=== PATIENT | male | born 1960 | race Caucasian/White ===

== ENCOUNTER 2017-01-08 05:43 | Inpatient (IN) | payer MEDICAID ==
[2017-01-08] VITALS (27 sets, daily range): BP systolic 119–181; BP diastolic 93–139; PULSE 66–90; RESP 10–25; TEMP 98; Ht 205.7 cm; Wt 94.5 kg
[~2017-01-08] VITALS: Ht 205.7 cm; Wt 94.5 kg
[2017-01-08] MEDS ORDERED: ASPIRIN 81 MG TAB PO STA (06:02)
[2017-01-08] MEDS ORDERED: ASPIRIN 81 MG TAB ONE (06:03)
[2017-01-08] MEDS ORDERED: HEPARIN 1000 UNITS/ML 10 ML INJ IV STA (06:05)
[2017-01-08 06:15] LABS: ADD SCAN DIFF NO
[2017-01-08] MEDS ORDERED: NITROGLYCERIN (SL) 0.4 MG TAB ONE (06:15)
[2017-01-08 06:19] LABS: BASOPHILS % 0.3 % (0.0-2.0); EOSINOPHILS # 0.1 10^3/ul (0.0-0.5); EOSINOPHILS % 1.1 % (0.0-7.0); HEMATOCRIT 47.8 % (42.0-52.0); HEMOGLOBIN 14.9 g/dl (14.0-18.0); LYMPHOCYTES # 3.4 10^3/ul (0.8-2.9); LYMPHOCYTES % 27.4 % (15.0-51.0); MEAN CORPUSCULAR HEMOGLOBIN 20.2 pg (29.0-33.0); MEAN CORPUSCULAR HGB CONC 31.2 g/dl (32.0-37.0); MEAN CORPUSCULAR VOLUME 64.9 fl (82.0-101.0); MEAN PLATELET VOLUME 9.3 fl (7.4-10.4); MONOCYTE # 0.8 10^3/ul (0.3-0.9); MONOCYTES % 6.8 % (0.0-11.0); NEUTROPHIL # 7.9 10^3/ul (1.6-7.5); NEUTROPHILS % 63.4 % (39.0-77.0); PLATELET COUNT 281 10^3/UL (140-415); RED BLOOD COUNT 7.37 10^6/ul (4.70-6.10); RED CELL DISTRIBUTION WIDTH 18.7 % (11.5-14.5); WHITE BLOOD COUNT 12.4 10^3/ul (4.8-10.8)
[2017-01-08] MEDS ORDERED: NITROGLYCERIN (SL) 0.4 MG TAB SL PRN ×2 (06:30→07:30)
[2017-01-08 06:33] LABS: INR 0.9; PROTIME 12.1 Sec (12.2-14.2); PT RATIO 0.9
[2017-01-08 06:34] LABS: PARTIAL THROMBOPLASTIN TIME 25.5 Sec (25.0-35.0)
[2017-01-08] MEDS ORDERED: LIDOCAINE 1% (MDV) 20 ML INJ ONE (06:38)
[2017-01-08] MEDS ORDERED: MIDAZOLAM 1 MG/ML 2 ML INJ ONE (06:38)
[2017-01-08] MEDS ORDERED: FENTAnyl 50 MCG/ML VIAL ONE (06:38)
--- NOTE | 2017-01-08 06:41 | RADRPT ---
PROCEDURE: XR Chest. CLINICAL INDICATION: Chest Pain. TECHNIQUE: Portable single view of the chest COMPARISON: None. FINDINGS: External pacer is overlie the chest. Heart size is top normal. No acute infiltrate, pleural effusi on, or overt congestive heart failure. No bony abnormality is seen. IMPRESSION: No definite acute pulmonary disease. RPTAT: HLBE Johana Oscar Physician Date Time Electronically viewed and signed by Johana Oscar, Physician on 01/08/2017 06:41 CATRACHITO/
[2017-01-08] MEDS ORDERED: NITROGLYCERIN (IC) 100 MCG/ML INJ ONE (06:47)
[2017-01-08] MEDS ORDERED: VERAPAMIL 5 MG INJ ONE (06:47)
--- NOTE | 2017-01-08 06:59 | CONS ---
DATE OF ADMISSION: 01/08/2017 DATE OF CONSULTATION: 01/08/2017 TYPE OF CONSULTATION: Emergency interventional cardiology. REASON FOR CONSULTATION: ST elevation myocardial infarction. CHIEF COMPLAINT: Chest pain. HISTORY OF PRESENT ILLNESS: Thank you for this referral. History obtained from the patient, bertin gandhi with the emergency room staff. This is a 56-year-old gentleman with history of hypertension, d yslipidemia, noncompliant, no medication, who presented with anterior chest pain. The patient said it happened last night around 10:00. He had chest pain that went away. He woke up again at 3 o'zeke ck in the morning with severe anterior chest pain and pressure. He walked into the emergency room w ith chest pain and EKG that showed ST elevation inferiorly. Code STEMI was called. The patient was evaluated in the emergency room by myself. He still complains of chest pain. He is still hyperten sive. Heparin and nitroglycerin was given already. He is still complaining of chest pain. PAST MEDICAL HISTORY: 1. Hypertension. 2. Dyslipidemia. MEDICATIONS AT HOME: Apparently he does not take any medications. SOCIAL HISTORY: The patient does smoke. FAMILY HISTORY: Father with coronary artery disease and ND. ALLERGIES: NO REPORTED ALLERGIES. REVIEW OF SYSTEMS: He denies all other except for above-mentioned. Apparently he is not very compl iant with his medications or his followup. The last time he saw a doctor apparently has been more t valadez a year ago. PHYSICAL EXAMINATION: VITAL SIGNS: Temperature 96.8, heart rate of 74, blood pressure initially was 210/131 and subsequen tly was 199/120. Respiratory rate of 20, saturating 100%. HEENT: Normocephalic, atraumatic. Obese gentleman. Appears in mild distress. Eyes: Pupils equal and round. CARDIOVASCULAR: Regular rate and rhythm with systolic murmur. PULMONARY: No wheezes heard anteriorly. No rhonchi. GASTROINTESTINAL: Obese, soft, nontender. EXTREMITIES: With no significant lower extremity edema. Pulses bilateral radial intact and symmetr ical. NEUROLOGIC: Awake and alert x3. PSYCHIATRIC: Calm, pleasant. LABORATORY: WBC 12.4, hemoglobin 14.9, platelets 281. INR is 0.9. The rest of the labs are pendin g. EKG showed normal sinus rhythm with ST elevation inferiorly with reciprocal changes noted in the aVL consistent with inferior ST elevation myocardial infarction. ASSESSMENT AND PLAN: 1. Acute inferior ST elevation myocardial infarction. 2. Hypertensive urgency. 3. Dyslipidemia. 4. Smoking. 5. History of poor compliance with the medications. 6. Abnormal EKG secondary to above. RECOMMENDATIONS: The patient has been given aspirin. We will give more nitroglycerine. He was rec ommended to undergo emergent left heart catheterization, selective right and left coronary angiograp hy, possible percutaneous coronary intervention. Risks, benefits, and alternatives discussed with t he patient. The risks include infection, vascular complication, bleeding complication, ND, stroke, arrhythmia, , renal failure, etc., discussed with the patient. The patient consented to proced ure. Importance of compliance with the medication was emphasized to the patient who said that he wi ll be compliant. We will take the patient to the phlebotomy lab assistant as soon as the phlebotomy lab assistant team is ready. Dictated By: FARHAT TITUS MD AV/GISSELLE Conf#: [id number] DID#: [id number] CC: SHADE CASEY MD;*EndCC*
[2017-01-08 07:02] LABS: ALBUMIN 4.3 g/dl (3.3-4.9); ALBUMIN/GLOBULIN RATIO 1.16; BILIRUBIN,INDIRECT 0.6 mg/dl (0-1.1); BILIRUBIN,TOTAL 0.6 mg/dl (0.2-1.3); CREATININE 1.02 mg/dl (0.61-1.24)
[2017-01-08] MEDS ORDERED: TICAGRELOR 90 MG TABLET ONE (07:03)
[2017-01-08 07:13] LABS: TROPONIN-I 0.086 ng/ml (0.00-0.12)
[2017-01-08 07:19] LABS: CALCIUM 8.8 mg/dl (8.4-10.2); POTASSIUM 3.6 mmol/L (3.5-5.1)
[2017-01-08] MEDS ORDERED: IODIXANOL LOCM 50 ML BTL ONE (07:21)
[2017-01-08] MEDS ORDERED: BIVALIRUDIN 250MG /NS 50 ML 50 ML IVPB ONE (07:21)
[2017-01-08] MEDS ORDERED: SOD CHLORIDE 0.9% 1,000 ML IV SCH (07:25)
[2017-01-08] MEDS ORDERED: OXYCODONE/ACETAMINOPHEN (5/325) TAB PO PRN (07:30)
[2017-01-08] MEDS ORDERED: morphine 2 MG INJ IV PRN (07:30)
--- NOTE | 2017-01-08 08:20 | SP ---
DATE OF PROCEDURE: 01/08/2017 PROCEDURE PERFORMED: 1. Emergent left heart catheterization, selective right and left coronary angiography. 2. Right femoral angiogram and closure of right femoral artery using Angio-Seal device. 3. Successful angioplasty of distal right coronary artery from 100% occlusion to no significant res idual stenosis using a 2 x 12 balloon. 4. Thrombectomy of the left anterior descending artery. 5. Conscious sedation/moderate sedation for more than 60 minutes. CLINICAL INDICATIONS: This is a 56-year-old gentleman who presented with ST-elevation myocardial in farction. FINDINGS: 1. Left main coronary artery is short and normal. 2. Left anterior descending, a long vessel wraps around the apex. Proximally about 20% stenosis. Mid level about 50% stenosis. At the distal level has 100% occluded with evidence of intraluminal t hrombus. After successful angioplasty, thrombectomy of this lesion, there was no significant residu al stenosis of the left. 3. Ramus intermedius is a small vessel, about 1 to 1.5 mm vessel, with about 60% to 70% stenosis. 4. Left circumflex artery gives off to a very large obtuse marginal 1, has about 30% stenosis. 5. Right coronary is a large, dominant vessel and appeared to be normal. 6. Left ventriculogram showed apical wall hypokinesis, ejection fraction estimated about 50%. LVED P is 18 with no significant gradient across the aortic valve. DESCRIPTION OF PROCEDURE: Written and informed consent was discussed with the patient. The patient was brought emergently to the laborer electroplating and placed in supine position. Right and left groins were p repped and draped in sterile fashion. Right groin area was anesthetized with 1% lidocaine. Using m ultiple technique, a 6-Turkish sheath was placed in the femoral artery. A JL4 catheter was advanced and engaged in the left main coronary artery. Angiogram was obtained. A JR4 catheter was in the formerly [facility] coronary artery and angiogram was obtained. At this time, decided to perform the PCI of the LAD which appeared to be an acute lesion. JL4 guiding catheter was advanced in the left main coronary artery. BMW wire used across the lesion, a 2 x 12 balloon was advanced across the lesion, distal LA D, and inflated multiple times. Then, it was removed and thrombectomy was done using a Pronto devic e. Angiogram was obtained after intracoronary nitroglycerin and verapamil were given. Then, I used the same balloon again multiple times and a prolonged inflation of the balloon was done. I decided not to stent this area because of: 1. Being a very distal LAD lesion. 2. The patient's very poor compliance and not commitment to be compliant with medication. I was co ncerned about subacute thrombosis of the stent if ____ placing the stent. Final angiogram was obtai patrick which showed OLENA 3 flow, no evidence of dissection, no significant residual stenosis. Catheter and Glidewire were removed. Pigtail was advanced in the left main, hemodynamics recorded. LV gram performed. Pullback aortic pressure was measured. Right femoral angiogram was performed. Angio-S eal was successfully deployed. The patient tolerated the procedure, no complication. The patient i s to be transferred to ICU in stable condition. TOTAL CONTRAST USED: 120 mL of Visipaque. IMMEDIATE COMPLICATIONS: None. CONCLUSION: Successful angioplasty and thrombectomy of the distal LAD from 100% occlusion to no sig nificant residual stenosis. RECOMMENDATIONS: Aggressive medical therapy. Dictated By: FARHAT TITUS MD AV/GISSELLE Conf#: [id number] DID#: [id number] CC: JUDI MONGE MD;*EndCC*
--- NOTE | 2017-01-08 08:52 | ERA ---
ER Documentation Chief Complaint Date/Time DATE: 01/08/17 TIME: 08:49 Chief Complaint LT SIDE CP NON RADIATING X1 HR. +SOB. HIGH BP HPI Patient is a 56-year-old male with hypertension who presents with chest pain. The patient had midsternal chest pain which started at 1030 last night. He said that the pain is still there. He has had no treatment as of yet. The pain comes and goes. Upon review of old medical records this is the patient's first visit to the emergency department. He does not currently have a primary doctor. ROS All systems reviewed and are negative except as per history of present illness. Allergies Allergies: Coded Allergies: No Known Allergy (Unverified , 01/08/17) NKA PER DULCE [employer]IA [employer] IN [employer] PMhx/Soc Medical and Surgical Hx: pt denies Surgical Hx History of Surgery: No Anesthesia Reaction: No Hx Neurological Disorder: No Hx Respiratory Disorders: No Hx Cardiac Disorders: Yes (htn) Hx Psychiatric Problems: No Hx Miscellaneous Medical Probl: No Hx Alcohol Use: No Hx Substance Use: No Hx Tobacco Use: No Smoking Status: Never smoker FmHx Family History: coronary disease Physical Exam Vitals Vital Signs Date Time Temp Pulse Resp B/P Pulse Ox O2 Delivery O2 Flow Rate FiO2 01/08/17 06:14 94 20 199/122 100 Nasal Cannula 2.0 01/08/17 06:10 100 3.0 01/08/17 05:56 Nasal Cannula 2 01/08/17 05:46 96.8 74 22 210/131 100 Physical Exam Const: No acute distress Head: Atraumatic Eyes: Normal Conjunctiva ENT: Normal External Ears, Nose and Mouth. Neck: Full range of motion..~ No meningismus. Resp: Clear to auscultation bilaterally Cardio: Regular rate and rhythm, no murmurs Abd: Soft, non tender, non distended. Normal bowel sounds Skin: No petechiae or rashes Back: No midline or flank tenderness Ext: No cyanosis, or edema Neur: Awake and alert Psych: Normal Mood and Affect Result Diagram: 01/08/17 0559 01/08/17 0559 Results 24 hrs Laboratory Tests Test 01/08/17 05:59 White Blood Count 12.410^3/ul Red Blood Count 7.3710^6/ul Hemoglobin 14.9g/dl Hematocrit 47.8% Mean Corpuscular Volume 64.9fl Mean Corpuscular Hemoglobin 20.2pg Mean Corpuscular Hemoglobin Concent 31.2g/dl Red Cell Distribution Width 18.7% Platelet Count 60564^3/UL Mean Platelet Volume 9.3fl Neutrophils % 63.4% Lymphocytes % 27.4% Monocytes % 6.8% Eosinophils % 1.1% Basophils % 0.3% Nucleated Red Blood Cells % 0.0/100WBC Neutrophils # 7.910^3/ul Lymphocytes # 3.410^3/ul Monocytes # 0.810^3/ul Eosinophils # 0.110^3/ul Basophils # 0.010^3/ul Nucleated Red Blood Cells # 0.010^3/ul Prothrombin Time 12.1Sec Prothrombin Time Ratio 0.9 INR International Normalized Ratio 0.90 Activated Partial Thromboplast Time 25.5Sec Sodium Level 137mmol/L Potassium Level 3.6mmol/L Chloride Level 103mmol/L Carbon Dioxide Level 26mmol/L Anion Gap 12 Blood Urea Nitrogen 17mg/dl Creatinine 1.02mg/dl Glucose Level 131mg/dl Calcium Level 8.8mg/dl Total Bilirubin 0.6mg/dl Direct Bilirubin 0.00mg/dl Indirect Bilirubin 0.6mg/dl Aspartate Amino Transf (AST/SGOT) 18IU/L Alanine Aminotransferase (ALT/SGPT) 31IU/L Alkaline Phosphatase 74IU/L Troponin I 0.086ng/ml B-Type Natriuretic Peptide 35PG/ML Total Protein 8.0g/dl Albumin 4.3g/dl Globulin 3.70g/dl Albumin/Globulin Ratio 1.16 Current Medications Medications (Trade) Dose Ordered Sig/Ross Route PRN Reason Start Time Stop Time Status Last Admin Dose Admin Aspirin (Aspirin) 162 mg ONCE STAT PO 01/08/17 06:02 01/08/17 06:03 DC 01/08/17 06:11 Heparin Sodium (Porcine) (Heparin (1000 Units/ml)) 5,000 unit ONCE STAT IV 01/08/17 06:05 01/08/17 06:07 DC 01/08/17 06:12 Nitroglycerin (Nitroglycerin (Sl Tab) 0.4 Mg) 1 tab Q5M UP TO 3 DOSES PRN SL CHEST PAIN 01/08/17 06:30 01/08/17 07:34 DC 01/08/17 06:44 Nitroglycerin (Nitroglycerin (Sl Tab) 0.4 Mg) 25 tab STK-MED ONCE .ROUTE 01/08/17 06:15 01/08/17 06:16 DC Lidocaine 20 ml 20 ml STK-MED ONCE .ROUTE 01/08/17 06:38 01/08/17 06:39 DC Heparin Sodium/ Sodium Chloride (Heparin 1000 Units/NS (A-Line)) 1,500 ml @ ud STK-MED ONCE .ROUTE 01/08/17 06:38 01/08/17 06:39 DC Fentanyl (Sublimaze) 100 mcg STK-MED ONCE .ROUTE 01/08/17 06:38 01/08/17 06:39 DC Midazolam HCl (Versed) 2 mg STK-MED ONCE .ROUTE 01/08/17 06:38 01/08/17 06:39 DC Procedures/MDM EKG #1 read by me: Rate/Rhythm: Regular rate and rhythm at a normal rate Intervals: Normal Impression: ST elevations in the inferior leads with reciprocal depression in aVL consistent with STEMI EKG #2 read by me: Rate/Rhythm: Regular rate and rhythm at a normal rate Intervals: Normal Impression: Worsening ST elevations in the inferior leads consistent with STEMI Chest x-ray negative per radiology. Patient is a 56-year-old male who presents with chest pain. He walked in with chest pain. His initial EKG was concerning for STEMI and a code STEMI was called overhead. I did not see the initial EKG as the patient arrived prior to the start of my shift. Cardiology was called at 0604. I spoke with Dr. Cho at 0606. He agreed to go to the cardiac Youth Program Director. We awaited the arrival of the cardiac cath team and at 0 [phone] the patient was transferred to the cardiac Youth Program Director. The patient was given aspirin, nitroglycerin, and heparin. The patient will be admitted to the care of the panel team to the ICU after the cardiac cath is completed. I doubt pneumonia, pneumothorax, pulmonary embolism , or aortic dissection. Critical Care: Time: 35 minutes excluding all billable procedures. Treatments/Evaluations: Close monitoring and treatment of unstable vital signs, cardiorespiratory, and neurologic status, while maintaining tight balance of fluid, respiratory, and cardiac interventions. Departure Diagnosis: Primary Impression: STEMI (ST elevation myocardial infarction) Qualified Code: I21.3 - ST elevation myocardial infarction (STEMI), unspecified artery Additional Impressions: Chest pain Qualified Code: I20.9 - Chest pain due to myocardial ischemia, unspecified ischemic chest pain type Hypertension Qualified Code: I10 - Essential hypertension Condition: Critical SHADE CASEY MD January 08, 2017 08:52
[2017-01-08] MEDS: FAMOTIDINE 20 MG TAB PO SCH ×2 (11:04→21:36)
[2017-01-08] MEDS: DOCUSATE SODIUM 100 MG CAP PO SCH ×2 (11:04→21:36)
[2017-01-08] MEDS: ASPIRIN (EC) 81 MG TAB PO SCH (11:04)
[2017-01-08] MEDS: TICAGRELOR 90 MG TABLET PO SCH ×2 (11:05→21:38)
[2017-01-08 13:06] LABS: ALBUMIN 3.7 g/dl (3.3-4.9); ALBUMIN/GLOBULIN RATIO 1.37; BILIRUBIN,INDIRECT 0.8 mg/dl (0-1.1); BILIRUBIN,TOTAL 0.8 mg/dl (0.2-1.3); CALCIUM 8.4 mg/dl (8.4-10.2); CREATININE 0.74 mg/dl (0.61-1.24); POTASSIUM 3.9 mmol/L (3.5-5.1); TOTAL PROTEIN 6.4 g/dl (6.1-8.1)
--- NOTE | 2017-01-08 13:21 | HP ---
DATE OF ADMISSION: 01/08/2017 CHIEF COMPLAINT: Chest pain. HISTORY OF PRESENT ILLNESS: The patient is a 56-year-old male with no medical history. The patient presents with chest pain that was nonradiating for 1 hour, as well as shortness of breath. Patient does not have a PCP. He does have questionable history of hypertension. In the ED, the patient oro d an EKG that showed ST elevations in the anterior leads with reciprocal depression in aVL consisten t with a STEMI. The patient was taken to the cardiac catheterization lab with Dr. Cho where he h ad a successful angioplasty of the distal right coronary artery from 100% occlusion to no residual s tenosis. The patient also had a thrombectomy of the left anterior descending artery. Patient now d enies any chest pain. He has no complaints. PAST MEDICAL HISTORY: Essentially none except for possible hypertension. PAST SURGICAL HISTORY: Denies. HOME MEDICATIONS: None/ ALLERGIES: NO KNOWN DRUG ALLERGIES. FAMILY HISTORY: Diabetes. SOCIAL HISTORY: Denies any alcohol, tobacco, or drug abuse. REVIEW OF SYSTEMS: A 12-point review of systems negative except that discussed in HPI. PHYSICAL EXAMINATION: VITAL SIGNS: Temperature is 98.1, pulse 69, respiration is 18, BP is 141/100, saturation 100% room air. GENERAL: No acute distress, alert and oriented. HEENT: Normocephalic, atraumatic. LUNGS: Clear to auscultation. CARDIOVASCULAR: Regular rate and rhythm. ABDOMEN: Nondistended, nontender, soft. EXTREMITIES: No clubbing, cyanosis, or edema. LABORATORY TESTS: White count 12.4, hemoglobin 14.9, platelets are 281. Chemistry within normal li mits. INR is 0.90. DIAGNOSTICS: Chest x-ray today showed no acute pulmonary disease. EKG arrival showed ST elevations in the inferior leads. ASSESSMENT AND PLAN: 1. STEMI status post cardiac catheterization with successful angioplasty of the distal RCA, as well as thrombectomy of the left anterior descending artery. The patient is currently chest pain free. We will continue his current cardiac medications of aspirin, Brilinta and statin as well as beta bl ocker. 2. Mild congestive heart failure. The patient's EF is at 60%. There is some apical wall hypokines is that could be myocardium versus new heart failure. The patient will need a followup echo w [facility] cardiology. 3. Prophylaxis: SCDs. Dictated By: CHRISTINE WHITE/GISSELLE Conf#: [id number] DID#: [id number]
[2017-01-08 13:24] LABS: CK-MB 34.6 ng/ml (0.0-2.4)
[2017-01-08 13:28] LABS: TROPONIN-I 14.9 ng/ml (0.00-0.12)
--- NOTE | 2017-01-08 13:44 | RADRPT ---
Echocardiogram Report Patient Name: VELIA BOATENG Gender: Male Date: 1960 Study Date: 08-Jan-2017 Autistic Teacher: Magali Little RDCS Location: 119 Ref. Physician: FARHAT CHO Quality: Good Procedures: Transthoracic echocardiogram with complete 2D, M-Mode, and doppler examination. Indications: STEMI. 2D/M Mode Doppler Measurement Value Normal Ranges Measurement Value Normal Ranges LVIDd 2D 4.9 3.5 - 5.6 cm AV Peak Camilo 1.2 m/sec LVIDs 2D 3.1 2.1 - 4.1 cm AV Peak PG 5.0 mmHg FS 2D 37.4 % LVOT Peak Camilo 0.8 m/sec LVPWd 2D 1.3 0.6 - 1.1 cm LVOT Peak PG 3.0 mmHg IVSd 2D 1.3 0.6 - 1.1 cm MV E Peak Camilo 0.6 m/sec IVS/LVPW 2D 1.0 MV A Peak Camilo 1.0 m/sec AoR Diam 2D 3.4 2.0 - 3.7 cm MV E/A 0.6 LA/Ao 2D 1 0 - 1 MV Decel Time 169 msec EDV 2D 117.0 cm3 MV E/A 0.6 ESV 2D 28.7 cm3 TR Peak Camilo 2.0 m/sec LA Dimen 2D 3.2 2.3 - 4.0 cm TR Peak PG 17.0 mmHg RVSP 25.0 mmHg Findings Left Ventricle: Normal left ventricular cavity size. Mild concentric left ventricular hypertrophy. Mild left ventricular systolic dysfunction. Ejection fraction is visually estimated at 45 - 50 %. Tissue Doppler/Mitral Doppler indices are consistent with impaired relaxation (Stage I diastolic dysfunction). These segments of the LV are hypokinetic apex and inferior apex segment. Right Ventricle: Normal right ventricular size. Normal right ventricular systolic function. Left Atrium: The left atrium is normal in size. Right Atrium: The right atrium is normal in size. Mitral Valve: Mitral valve leaflets appear mildly thickened. Mild mitral annular calcification. Trace mitral regurgitation. Aortic Valve: No significant aortic stenosis or insufficiency. Aortic cusps appear mildly calcified. Tricuspid Valve: Normal appearance of the tricuspid valve. Estimated peak PA systolic pressure 25 mmHg. There is trace tricuspid regurgitation. Pulmonic Valve: Normal pulmonic valve appearance. Pericardium: Normal pericardium with no significant pericardial effusion. Aorta: Normal aortic root. IVC: Normal size and normal respiratory collapse consistent with normal right atrial pressure. Conclusions 1.Normal left ventricular cavity size. Mild concentric left ventricular hypertrophy. Mild left ventricular systolic dysfunction. Ejection fraction is visually estimated at 45 - 50 %. Tissue Doppler/Mitral Doppler indices are consistent with impaired relaxation (Stage I diastolic dysfunction). These segments of the LV are hypokinetic apex and inferior apex segment. 2.Mitral valve leaflets appear mildly thickened. Mild mitral annular calcification. Trace mitral regurgitation. 3.No significant aortic stenosis or insufficiency. Aortic cusps appear mildly calcified. 4.Normal appearance of the tricuspid valve. Estimated peak PA systolic pressure 25 mmHg. There is trace tricuspid regurgitation. Electronically Signed By: Farhat Cho 08-Jan-2017 13:43:54 -0700 Patient Name: VELIA BOATENG Study Date: 08-Jan-2017 [id number]
--- NOTE | 2017-01-08 14:15 | RADRPT ---
Vent Rate: 69 bpm RR Interval: 0 msec ND Interval: 180 msec QRS Duration: 108 msec QT Interval: 428 msec QTC Interval: 458 msec P-R-T [place]: 60 - 55 - -68 degrees Normal sinus rhythm T wave abnormality, consider inferior ischemia T wave abnormality, consider anterolateral ischemia Abnormal ECG Electronically Signed By: Facundo Cho [id number]
[2017-01-08] MEDS ORDERED: PROPOFOL 100 ML IV SCH (20:30)
[2017-01-08] MEDS: AMLODIPINE 5 MG TAB PO SCH (21:36)
[2017-01-08] MEDS: ATORVASTATIN 80 MG TAB PO SCH (21:36)
[2017-01-09] VITALS (12 sets, daily range): BP systolic 120–149; BP diastolic 75–90; PULSE 53–87; RESP 16–20
[2017-01-09] MEDS: ASPIRIN (EC) 81 MG TAB PO SCH (08:43)
[2017-01-09] MEDS: FAMOTIDINE 20 MG TAB PO SCH ×2 (08:43→21:34)
[2017-01-09] MEDS: DOCUSATE SODIUM 100 MG CAP PO SCH ×2 (08:43→21:34)
[2017-01-09] MEDS: TICAGRELOR 90 MG TABLET PO SCH ×2 (08:43→21:37)
[2017-01-09] MEDS: AMLODIPINE 5 MG TAB PO SCH (08:43)
--- NOTE | 2017-01-09 09:28 | PN ---
DATE: 01/09/2017 CARDIOLOGY FOLLOWUP SUBJECTIVE: No more chest pain or pressure. No palpitation. Remains in sinus rhythm now. No groi n pain. He was able to walk last night. No bleeding reported. MEDICATIONS: Reviewed, which include: 1. Lipitor 80. 2. Amlodipine of 5. 3. Aspirin. 4. Brilinta. 5. Coreg 6.25. PHYSICAL EXAMINATION: VITAL SIGNS: Temperature 98.1, heart rate of 69, blood pressure 136/90, respiratory rate of 20, sat urating 97%. HEENT: Normocephalic, atraumatic. Pupils are equal. CARDIOVASCULAR: Regular rate and rhythm. Systolic murmur. PULMONARY: With no wheezes heard. GASTROINTESTINAL: Soft, obese, nontender. EXTREMITIES: With no significant lower extremity edema. NEUROLOGIC: Awake and alert. PSYCHIATRIC: Calm, pleasant. LABORATORY DATA: Most recent labs show sodium 137, potassium 3.9, BUN of 11, creatinine 0.74, gluco se of 96. Troponin yesterday was 14.9 with MB CK of 520 34. This morning labs are still pend ing. ASSESSMENT AND PLAN: 1. Acute ST elevation myocardial infarction, status post percutaneous transluminal coronary angiopl asty of the left anterior descending. 2. Hypertension. 3. Dyslipidemia. 4. Obesity. RECOMMENDATIONS: I will increase the Coreg to 12.5 b.i.d. Continue the rest of his cardiac care. Follow up the labs today and repeat again tomorrow. Discharge planning for tomorrow, possibly. Dictated By: FARHAT TITUS MD AV/GISSELLE Conf#: [id number] DID#: [id number] CC: CHRISTINE SAEED MD;*EndCC*
[2017-01-09 10:26] LABS: ADD SCAN DIFF NO
[2017-01-09 10:32] LABS: BASOPHILS % 0.2 % (0.0-2.0); EOSINOPHILS # 0.2 10^3/ul (0.0-0.5); EOSINOPHILS % 1.6 % (0.0-7.0); HEMATOCRIT 45.1 % (42.0-52.0); LYMPHOCYTES # 2.2 10^3/ul (0.8-2.9); LYMPHOCYTES % 18.1 % (15.0-51.0); MEAN CORPUSCULAR HEMOGLOBIN 19.9 pg (29.0-33.0); MEAN PLATELET VOLUME 9.7 fl (7.4-10.4); MONOCYTE # 0.9 10^3/ul (0.3-0.9); MONOCYTES % 7.6 % (0.0-11.0); NEUTROPHIL # 8.5 10^3/ul (1.6-7.5); NEUTROPHILS % 71.7 % (39.0-77.0); PLATELET COUNT 267 10^3/UL (140-415); RED BLOOD COUNT 7.05 10^6/ul (4.70-6.10); RED CELL DISTRIBUTION WIDTH 19.4 % (11.5-14.5); WHITE BLOOD COUNT 11.9 10^3/ul (4.8-10.8)
[2017-01-09 10:53] LABS: ALBUMIN 3.8 g/dl (3.3-4.9); ALBUMIN/GLOBULIN RATIO 1.26; CALCIUM 8.8 mg/dl (8.4-10.2); CHOL/HDL RATIO 5.9 RATIO; CREATININE 0.85 mg/dl (0.61-1.24); MAGNESIUM 1.8 mg/dl (1.7-2.5); TOTAL PROTEIN 6.8 g/dl (6.1-8.1)
[2017-01-09 11:08] LABS: TROPONIN-I 4.97 ng/ml (0.00-0.12)
[2017-01-09 11:09] LABS: CK-MB 6.74 ng/ml (0.0-2.4)
[2017-01-09 11:25] LABS: THYROID STIMULATING HORMONE 2.77 MIU/L (0.465-4.680)
[2017-01-09] MEDS: ACETAMINOPHEN 325 MG TAB PO PRN ×2 (14:23→21:39)
--- NOTE | 2017-01-09 15:59 | PN ---
Date/Time of Note Date/Time of Note DATE: 01/09/17 TIME: 15:56 Assessment/Plan VTE Prophylaxis VTE Prophylaxis Intervention: SCD's Lines/Catheters IV C[facility]ter Type (from [facility]): Peripheral IV Urinary Cath still in place: No Assessment/Plan Chief Complaint/Hosp Course 1. STEMI status post cardiac catheterization with successful angioplasty of the distal RCA, as well as thrombectomy of the left anterior descending artery -Continue aspirin, Brilinta and statin as well as beta melissa, beta melissa dose increased today by cardiology 2. Mild congestive heart failure versus stunned myocardium -EF is 45%-50% -Continue cardiac meds 3. Hypertension-BP elevated -Coreg dose was increased Prophylaxis: SCDs. Discharge planning: Likely DC in a.m. Problems: Subjective 24 Hr Interval Summary Constitutional: no complaints Exam/Review of Systems Vital Signs Vitals Vital Signs Date Time Temp Pulse Resp B/P Pulse Ox O2 Delivery O2 Flow Rate FiO2 01/09/17 15:13 98.9 54 20 144/82 96 01/08/17 22:00 Room Air 01/08/17 06:40 2.0 Intake and Output 01/08/17 01/08/17 01/09/17 15:00 23:00 07:00 Intake Total 150 ml 750 ml 100 ml Output Total 1950 ml 1000 ml 700 ml Balance -1800 ml -250 ml -600 ml Exam Constitutional: alert, oriented Respiratory: clear to auscultation Cardiovascular: regular rate and rhythm Gastrointestinal: soft, No distended Musculoskeletal: nl extremities to inspection Results Result Diagram: 01/09/17 1015 01/09/17 1015 Results 24 hrs Laboratory Tests Test 01/09/17 10:15 White Blood Count 11.9 H Red Blood Count 7.05 H Hemoglobin 14.0 Hematocrit 45.1 Mean Corpuscular Volume 64.0 L Mean Corpuscular Hemoglobin 19.9 L Mean Corpuscular Hemoglobin Concent 31.0 L Red Cell Distribution Width 19.4 H Platelet Count 267 Mean Platelet Volume 9.7 Neutrophils % 71.7 Lymphocytes % 18.1 Monocytes % 7.6 Eosinophils % 1.6 Basophils % 0.2 Nucleated Red Blood Cells % 0.0 Neutrophils # 8.5 H Lymphocytes # 2.2 Monocytes # 0.9 Eosinophils # 0.2 Basophils # 0.0 Nucleated Red Blood Cells # 0.0 Sodium Level 135 Potassium Level 4.0 Chloride Level 105 Carbon Dioxide Level 24 Anion Gap 10 Blood Urea Nitrogen 14 Creatinine 0.85 Glucose Level 98 Calcium Level 8.8 Magnesium Level 1.8 Total Bilirubin 1.0 Direct Bilirubin 0.00 Indirect Bilirubin 1.0 Aspartate Amino Transf (AST/SGOT) 38 Alanine Aminotransferase (ALT/SGPT) 34 Alkaline Phosphatase 48 Creatine Kinase 133 # Creatine Kinase Index 5.1 Creatinine Kinase MB (Mass) 6.74 H Troponin I 4.970 *H B-Type Natriuretic Peptide 398 H Total Protein 6.8 Albumin 3.8 Globulin 3.00 Albumin/Globulin Ratio 1.26 Triglycerides Level 320 H Cholesterol Level 178 LDL Cholesterol, Calculated 84 HDL Cholesterol 30 Cholesterol/HDL Ratio 5.9 Thyroid Stimulating Hormone (TSH) 2.770 Free Thyroxine 0.78 Medications Medications Current Medications Aspirin (Halfprin) 81 mg DAILY PO Last administered on 01/09/17 08:43; Admin Dose 81 MG; Start 01/08/17 at 09:00 Ticagrelor (Brilinta) 90 mg BID PO Last administered on 01/09/17 08:43; Admin Dose 90 MG; Start 01/08/17 at 09:00 Nitroglycerin (Nitroglycerin (Sl Tab) 0.4 Mg) 1 tab Q5M PRN SL CHEST PAIN; Start 01/08/17 at 07:30 Acetaminophen (Tylenol Tab) 650 mg Q4H PRN PO NON-CARDIAC PAIN LEVEL 1-3 Last administered on 01/09/17 14:23; Admin Dose 650 MG; Start 01/08/17 at 07:30 Oxycodone/ Acetaminophen (Percocet (5/ 325)) 1 tab Q4H PRN PO REPORTED NON- CARDIAC PAIN 4-7; Start 01/08/17 at 07:30 Morphine Sulfate (morphine) 1 mg Q1H PRN IV PAIN NOT RELIEVED BY OTHERS; Start 01/08/17 at 07:30 Docusate Sodium (Colace) 100 mg BID PO Last administered on 01/09/17 08:43; Admin Dose 100 MG; Start 01/08/17 at 09:00 Famotidine (Pepcid) 20 mg Q12 PO Last administered on 01/09/17 08:43; Admin Dose 20 MG; Start 01/08/17 at 09:00 Atorvastatin Calcium (Lipitor) 80 mg DAILY@21 PO Last administered on 01/08/17 21:36; Admin Dose 80 MG; Start 01/08/17 at 21:00 Amlodipine Besylate (Norvasc) 5 mg DAILY PO Last administered on 01/09/17 08: 43; Admin Dose 5 MG; Start 01/08/17 at 21:00 Carvedilol (Coreg) 12.5 mg BID PO Last administered on 01/09/17 08:43; Admin Dose 12.5 MG; Start 01/09/17 at 09:00 CHRISTINE SAEED January 09, 2017 15:59
[2017-01-09] MEDS: ATORVASTATIN 80 MG TAB PO SCH (21:34)
[2017-01-10] VITALS (8 sets, daily range): BP systolic 132–147; BP diastolic 77–90; PULSE 59–69; RESP 16–20
[2017-01-10 08:20] LABS: ADD SCAN DIFF NO
[2017-01-10 08:27] LABS: BASOPHILS % 0.3 % (0.0-2.0); EOSINOPHILS # 0.2 10^3/ul (0.0-0.5); EOSINOPHILS % 1.6 % (0.0-7.0); HEMATOCRIT 45.5 % (42.0-52.0); LYMPHOCYTES # 2.6 10^3/ul (0.8-2.9); LYMPHOCYTES % 21.8 % (15.0-51.0); MEAN CORPUSCULAR HEMOGLOBIN 19.7 pg (29.0-33.0); MEAN CORPUSCULAR HGB CONC 30.8 g/dl (32.0-37.0); MEAN CORPUSCULAR VOLUME 64.1 fl (82.0-101.0); MEAN PLATELET VOLUME 10.4 fl (7.4-10.4); MONOCYTE # 0.9 10^3/ul (0.3-0.9); MONOCYTES % 7.2 % (0.0-11.0); NEUTROPHIL # 8.3 10^3/ul (1.6-7.5); PLATELET COUNT 282 10^3/UL (140-415); RED CELL DISTRIBUTION WIDTH 19.3 % (11.5-14.5); WHITE BLOOD COUNT 12.1 10^3/ul (4.8-10.8)
[2017-01-10] MEDS: DOCUSATE SODIUM 100 MG CAP PO SCH (08:32)
[2017-01-10] MEDS: ASPIRIN (EC) 81 MG TAB PO SCH (08:32)
[2017-01-10] MEDS: AMLODIPINE 5 MG TAB PO SCH (08:33)
[2017-01-10] MEDS: FAMOTIDINE 20 MG TAB PO SCH (08:33)
[2017-01-10] MEDS: TICAGRELOR 90 MG TABLET PO SCH (08:34)
[2017-01-10 08:58] LABS: ALBUMIN 3.8 g/dl (3.3-4.9); ALBUMIN/GLOBULIN RATIO 1.15; CALCIUM 9.2 mg/dl (8.4-10.2); CREATININE 0.95 mg/dl (0.61-1.24); MAGNESIUM 1.9 mg/dl (1.7-2.5); POTASSIUM 3.9 mmol/L (3.5-5.1); TOTAL PROTEIN 7.1 g/dl (6.1-8.1)
[2017-01-10] MEDS ORDERED: PANTOPRAZOLE (EC) 40 MG TAB PO SCH (09:00)
--- NOTE | 2017-01-10 09:02 | PN ---
DATE: 01/10/2017 CARDIOLOGY FOLLOWUP SUBJECTIVE: Discussed with the staff. Rhythm strip was reviewed. The patient was in sinus rhythm. No chest pain or pressure now. H said that after he was eating yesterday he had some epigastric di scomfort that was different than his heart attack pain. He was able to walk with no chest pain ____ . MEDICATIONS: Reviewed, include: 1. Coreg. 2. Lipitor. 3. Amlodipine of 5. 4. Aspirin. 5. Plavix 6. Nitroglycerin p.r.n. 7. Pepcid. PHYSICAL EXAMINATION: VITAL SIGNS: Temperature 98.6, heart rate of 44, blood pressure 132/77, respiratory rate of 20, sat urating 96%. HEENT: Normocephalic, atraumatic. Obese gentleman. Pupils are equal. CARDIOVASCULAR: Regular rate and rhythm, systolic murmur. PULMONARY: With no wheezes or rhonchi. GASTROINTESTINAL: Obese, soft, nontender. EXTREMITIES: With no significant lower extremity edema. NEUROLOGIC: Awake and alert. PSYCHIATRIC: Calm, pleasant. LABORATORY: WBC of 11.9, hemoglobin 14, platelets 267. Sodium 135, potassium 4, BUN of 14, creatin ine 0.85, glucose of 98. Troponin yesterday was 4.9. BNP was 398. Cholesterol 178, LDL 84, HDL of 30. TSH 2.77. ASSESSMENT AND PLAN: 1. Acute anterior ST elevation myocardial infarction infarctions, status post PTCA of the left ant erior descending. 2. Hypertension. 3. Dyslipidemia. 4. Obesity. 5. History of noncompliance. RECOMMENDATIONS: We will continue with the current cardiac care. Will start the patient on Protoni x. Discharge planning for today. Patient advised to follow with me as an outpatient. Dictated By: FARHAT TITUS MD AV/GISSELLE Conf#: [id number] DID#: [id number] CC: CHRISTINE SAEED MD;*End*
[2017-01-10 09:43] LABS: CK-MB 2.01 ng/ml (0.0-2.4); TROPONIN-I 3.26 ng/ml (0.00-0.12)
[2017-01-10] MEDS ORDERED: ASPI-664 PO (10:25)
[2017-01-10] MEDS ORDERED: NIT4 SL (10:25)
[2017-01-10] MEDS ORDERED: AMLO-145 PO (10:25)
[2017-01-10] MEDS ORDERED: CARV12.579 PO (10:25)
[2017-01-10] MEDS ORDERED: ATOR80TA75 PO (10:25)
[2017-01-10] MEDS ORDERED: TICA90TA PO (10:25)
--- NOTE | 2017-01-10 10:26 | PDOCDIS ---
Discharge Instructions CONDITION Patient Condition: Good HOME CARE INSTRUCTIONS: Diet Instructions: Modified Fat ACTIVITY: Activity Restrictions: No Restrictions FOLLOW UP/APPOINTMENTS Appointments F/U WITH YOUR PCP IN 1-2 WEEKS, F/U WITH CHRISTINE PALACIOS January 10, 2017 10:26
--- NOTE | 2017-01-10 15:48 | DS ---
DATE OF ADMISSION: 01/08/2017 DATE OF DISCHARGE: 01/10/2017 DISCHARGE DIAGNOSES: 1. ST elevation myocardial infarction status post percutaneous coronary intervention with successfu l angioplasty to the distal right coronary artery as well as thrombectomy of the left anterior desce nding artery. Continue aspirin, Brilinta, statin as well as beta melissa. 2. Mild congestive heart failure versus sudden myocardium. Ejection fraction is 45% to 50%. The p atient to follow up with cardiology for followup echo. Continue cardiac medications. 3. Hypertension, newly diagnosed. Discharged with Coreg and Norvasc. HOSPITAL COURSE: The patient is a 56-year-old male with no prior known medical history. Patient pr esents with chest pain. The patient was found to have STEMI. The patient was taken to the cardiac catheterization lab with Dr. Cho. He had successful angioplasty of the distal right coronary art conner as well as a thrombectomy of the left anterior descending artery. No stents placed. The patien t had a 2D echo that showed an EF of 45% to 50%. Once again, could be a sudden myocardium versus n ew diagnosis of heart failure. The patient needs a followup echo to further evaluate. The patient was noted to have elevated blood pressure and his Coreg dose was advanced to 12.5 mg b.i.d. and was started on Norvasc by cardiology. The patient was felt to be stable for discharge. Of note, his A1 c was checked and was 5.3. His LDL was 84. The patient was felt to be stable for discharge. The p atient was cleared for discharge by cardiology. On the day of discharge, the patient's vitals, labs , physical exam were stable. He had no acute complaints. Questions answered and he was told about the importance of medication compliance. CONDITION ON DISCHARGE: Stable. DISPOSITION: To home. MEDICATIONS: 1. The patient was given new prescriptions for Norvasc 5 daily. 2. Aspirin 81 mg daily. 3. Atorvastatin 80 daily. 4. Coreg 12.5 b.i.d. 5. Nitroglycerin p.r.n. 6. Brilinta 90 mg p.o. b.i.d. HOME MEDICATIONS: The patient has no reported home medications. FOLLOWUP: The patient is to follow up with his PCP in 1 to 2 weeks and is follow up and is to follo w up with Dr. Lopes. Greater than 30 minutes was spent coordinating discharge of this patient. Dictated By: CHRISTINE WHITE/NTS Conf#: [id number] DID#: [id number]
== END 2017-01-10 14:45 | disposition home or self-care (01) | DRG 251 ==
LOC: E/R 05:43 → CCL 06:38 → ICU 06:39 → TEL 23:43
PROVIDERS: ADMIT Internal Medicine; ATTEND Internal Medicine Interventional Cardiology
PROC: 02703ZZ Dilation of Coronary Artery, One Artery, Percutaneous Approach (ICD-10-PCS; principal; 2017-01-08)
PROC: 02C03ZZ Extirpation of Matter from Coronary Artery, One Artery, Percutaneous Approach (ICD-10-PCS; 2017-01-08)
PROC: 4A023N7 Measurement of Cardiac Sampling and Pressure, Left Heart, Percutaneous Approach (ICD-10-PCS; 2017-01-08)
PROC: B2111ZZ Fluoroscopy of Multiple Coronary Arteries using Low Osmolar Contrast (ICD-10-PCS; 2017-01-08)
PROC: B2151ZZ Fluoroscopy of Left Heart using Low Osmolar Contrast (ICD-10-PCS; 2017-01-08)
DX: I21.19 ST elevation (STEMI) myocardial infarction involving other coronary artery of inferior wall (principal); I11.0 Hypertensive heart disease with heart failure; I50.9 Heart failure, unspecified; E78.5 Hyperlipidemia, unspecified; E66.9 Obesity, unspecified; I16.0 Hypertensive urgency; F17.210 Nicotine dependence, cigarettes, uncomplicated; Z91.14 Patient's other noncompliance with medication regimen; Z82.49 Family history of ischemic heart disease and other diseases of the circulatory system
CPT/HCPCS: 36415; 71010; 80053; 80061; 82550; 82553; 83036; 83735; 83880; 84439; 84443; 84484; 85025; 85610; 85730; 87081; 92920; 93005; 93306; 93458; 96374; C1725; C1757; C1760; C1769; C1887; C1894; J0583; J1644; J2250; J3010; J7030; Q9967

== ENCOUNTER 2017-04-27 21:47 | Inpatient (IN) | payer MEDICAID ==
[~2017-04-27] VITALS: Ht 175.3 cm; Wt 94.9 kg
[~2017-04-27 21:47] MED LIST: AMLO-145 PO; ASPI-664 PO; ATOR80TA75 PO; CARV12.579 PO; NIT4 SL; TICA90TA PO
[2017-04-27] MEDS ORDERED: NITROGLYCERIN 2% 1 GM OINT PKT TD STA (22:36)
[2017-04-27] MEDS ORDERED: ASPIRIN 81 MG TAB PO STA (22:36)
[2017-04-27 22:43] LABS: BASOPHILS % 0.3 % (0.0-2.0); EOSINOPHILS # 0.2 10^3/ul (0.0-0.5); EOSINOPHILS % 1.6 % (0.0-7.0); HEMOGLOBIN 13.3 g/dl (14.0-18.0); LYMPHOCYTES # 2.1 10^3/ul (0.8-2.9); LYMPHOCYTES % 17.1 % (15.0-51.0); MEAN CORPUSCULAR HGB CONC 31.7 g/dl (32.0-37.0); MEAN CORPUSCULAR VOLUME 63.2 fl (82.0-101.0); MEAN PLATELET VOLUME 9.5 fl (7.4-10.4); MONOCYTE # 0.7 10^3/ul (0.3-0.9); MONOCYTES % 6.1 % (0.0-11.0); NEUTROPHILS % 74.4 % (39.0-77.0); PLATELET COUNT 273 10^3/UL (140-415); RED BLOOD COUNT 6.65 10^6/ul (4.70-6.10); WHITE BLOOD COUNT 12.1 10^3/ul (4.8-10.8)
[2017-04-27] MEDS: NITROGLYCERIN (SL) 0.4 MG TAB SL PRN (22:51)
[2017-04-27 23:03] LABS: ANION GAP 18 (8-16); BLOOD UREA NITROGEN 15 mg/dl (7-20); CALCIUM 8.9 mg/dl (8.4-10.2); CARBON DIOXIDE 25 mmol/L (21-31); CHLORIDE 99 mmol/L (97-110); CREATININE 0.96 mg/dl (0.61-1.24); GLUCOSE 100 mg/dl (70-220); SODIUM 138 mmol/L (135-144)
[2017-04-27 23:18] LABS: TROPONIN-I < 0.012 ng/ml (0.00-0.12)
--- NOTE | 2017-04-27 23:20 | RADRPT ---
PROCEDURE: Portable chest x-ray. CLINICAL INDICATION: 57 years of age, female. Chest pain. TECHNIQUE: Portable AP view of the chest. COMPARISON: None available. FINDINGS: Cardiomediastinal contours are normal. Lungs are clear. Negative for pleural effusion or pneumothorax. No acute bony abnormality. IMPRESSION: Negative for evidence of acute chest process. RPTAT: HCTS Physician Reina Date Time Electronically viewed and signed by Adolfo Bauman Physician on 04/27/2017 23:20 CS/
[2017-04-28] VITALS (13 sets, daily range): BP systolic 105–127; BP diastolic 58–84; PULSE 65–72; RESP 16–18; Ht 175.3 cm; Wt 94.9 kg
[2017-04-28] MEDS ORDERED: ACETAMINOPHEN 325 MG TAB PO PRN
--- NOTE | 2017-04-28 00:42 | ERA ---
ER Documentation Chief Complaint Date/Time DATE: 04/28/17 TIME: 00:40 Chief Complaint chest pain since 1500. HPI Patient is a 57-year-old male with coronary disease and hypertension who presents with chest pain. He had chest pain which started at 8 PM. The pain is constant and midsternal. He tried nitroglycerin which did help the pain. He does not currently have a primary doctor. ROS All systems reviewed and are negative except as per history of present illness. Medications Home Meds Active Scripts Aspirin* (Aspirin* EC) 81 Mg Tablet.dr, 81 MG PO DAILY, #90 3 Refills Prov:CHRISTINE SAEED 01/10/17 Nitroglycerin* (Nitrostat*) 0.4 Mg Tab.subl, 1 TAB SL Q5M Y for CHEST PAIN, #90 Prov:KIM SAEEDStephon 01/10/17 Carvedilol* (Carvedilol*) 12.5 Mg Tablet, 12.5 MG PO BID, #60 TAB 1 Refill Prov:KIM SAEEDStephon 01/10/17 Atorvastatin* (Atorvastatin*) 80 Mg Tablet, 80 MG PO DAILY@21, #60 TAB 1 Refill Prov:CHRISTINE SAEED 01/10/17 Amlodipine Besylate* (Amlodipine Besylate*) 5 Mg Tablet, 5 MG PO DAILY, #60 TAB 1 Refill Prov:CHRISTINE SAEED 01/10/17 Ticagrelor* (Brilinta*) 90 Mg Tablet, 90 MG PO BID, #60 TAB 3 Refills Prov:CHRISTINE SAEED 01/10/17 Allergies Allergies: Coded Allergies: No Known Allergy (Unverified , 01/08/17) NKA PER DULCE MARIA WAGG[employer]ER IN [employer] PMhx/Soc History of Surgery: Yes (cardiac cath c stent) Anesthesia Reaction: No Hx Neurological Disorder: No Hx Respiratory Disorders: No Hx Cardiac Disorders: Yes (HTN, STEMI,hyperlipidemia) Hx Psychiatric Problems: No Hx Miscellaneous Medical Probl: No Hx Alcohol Use: Yes Hx Substance Use: Yes Hx Tobacco Use: Yes Smoking Status: Never smoker FmHx Family History: coronary disease Physical Exam Vitals Vital Signs Date Time Temp Pulse Resp B/P Pulse Ox O2 Delivery O2 Flow Rate FiO2 04/27/17 21:57 99.3 78 22 145/91 95 Physical Exam Const: No acute disease Head: Atraumatic Eyes: Normal Conjunctiva ENT: Normal External Ears, Nose and Mouth. Neck: Full range of motion..~ No meningismus. Resp: Clear to auscultation bilaterally Cardio: Regular rate and rhythm, no murmurs Abd: Soft, non tender, non distended. Normal bowel sounds Skin: No petechiae or rashes Back: No midline or flank tenderness Ext: No cyanosis, or edema Neur: Awake and alert Psych: Normal Mood and Affect Result Diagram: 04/27/17222504/27/172225 Results 24 hrs Laboratory Tests Test 04/27/17 22:26 White Blood Count 12.110^3/ul Red Blood Count 6.6510^6/ul Hemoglobin 13.3g/dl Hematocrit 42.0% Mean Corpuscular Volume 63.2fl Mean Corpuscular Hemoglobin 20.0pg Mean Corpuscular Hemoglobin Concent 31.7g/dl Red Cell Distribution Width 18.0% Platelet Count 30436^3/UL Mean Platelet Volume 9.5fl Neutrophils % 74.4% Lymphocytes % 17.1% Monocytes % 6.1% Eosinophils % 1.6% Basophils % 0.3% Nucleated Red Blood Cells % 0.0/100WBC Neutrophils # (Manual) 9.010^3/ul Lymphocytes # 2.110^3/ul Monocytes # 0.710^3/ul Eosinophils # 0.210^3/ul Basophils # 0.010^3/ul Nucleated Red Blood Cells # 0.010^3/ul Sodium Level 138mmol/L Potassium Level 4.0mmol/L Chloride Level 99mmol/L Carbon Dioxide Level 25mmol/L Anion Gap 18 Blood Urea Nitrogen 15mg/dl Creatinine 0.96mg/dl Glucose Level 100mg/dl Calcium Level 8.9mg/dl Troponin I < 0.012ng/ml Current Medications Medications (Trade) Dose Ordered Sig/Ross Route PRN Reason Start Time Stop Time Status Last Admin Dose Admin Aspirin (Aspirin) 162 mg ONCE STAT PO 04/27/17 22:36 04/27/17 22:38 DC 04/27/17 22:50 Nitroglycerin (Nitroglycerin 2% Oint) 1 inch ONCE STAT TD 04/27/17 22:36 04/27/17 22:38 DC 04/27/17 23:37 Nitroglycerin (Nitroglycerin (Sl Tab) 0.4 Mg) 1 tab Q5M UP TO 3 DOSES PRN SL CHEST PAIN 04/27/17 23:00 04/27/17 22:51 Ondansetron HCl (Zofran Inj) 4 mg ER BRIDGE PRN IV NAUSEA AND/OR VOMITING 04/28/17 00:00 04/28/17 23:59 Acetaminophen (Tylenol Tab) 650 mg ER BRIDGE PRN PO MILD PAIN/FEVER 04/28/17 00:00 04/28/17 23:59 Procedures/MDM EKG #1 read by me: Rate/Rhythm: Regular rate and rhythm at a rate of 76 Intervals: Normal Impression: No evidence of ischemia or arrhythmia EKG #2 read by me: Rate/Rhythm: Regular rate and rhythm at a rate of 71 Intervals: Normal Impression: No evidence of ischemia or arrhythmia Chest x-ray shows no pneumonia or pneumothorax per radiology. Patient is a 57-year-old male with cardiac risk factors who presents with chest pain. I am concerned for possible acute coronary syndrome. I doubt pneumonia, pneumothorax, pulmonary embolism, or aortic dissection. The patient will need admission to a telemetry bed. I spoke with Dr. Murrieta from the panel team for admission. Departure Diagnosis: Primary Impression: Chest pain Qualified Code: R07.9 - Chest pain, unspecified type Condition: SHADE Pool MD Apr 28, 2017 00:42
[2017-04-28] MEDS ORDERED: morphine 2 MG INJ IV PRN (01:30)
[2017-04-28] MEDS ORDERED: NITROGLYCERIN (SL) 0.4 MG TAB SL PRN (01:30)
[2017-04-28] MEDS ORDERED: ONDANSETRON 4 MG INJ IV PRN ×2 (01:30)
[2017-04-28] MEDS ORDERED: SOD CHLORIDE 0.9% 1,000 ML IV SCH (01:30)
[2017-04-28] MEDS: DOCUSATE SODIUM 100 MG CAP PO SCH ×2 (09:23→21:07)
[2017-04-28] MEDS: ASPIRIN (EC) 81 MG TAB PO SCH (09:23)
[2017-04-28] MEDS: FAMOTIDINE 20 MG TAB PO SCH ×2 (09:24→21:07)
[2017-04-28] MEDS: AMLODIPINE 5 MG TAB PO SCH (09:25)
[2017-04-28 09:32] LABS: CREATINE KINASE 47 IU/L (23-200)
[2017-04-28 09:33] LABS: CK-MB 0.24 ng/ml (0.0-2.4); TROPONIN-I < 0.012 ng/ml (0.00-0.12)
[2017-04-28] MEDS: TICAGRELOR 90 MG TABLET PO SCH ×2 (10:00→21:07)
[2017-04-28 10:19] LABS: BASOPHILS % 0.2 % (0.0-2.0); EOSINOPHILS # 0.2 10^3/ul (0.0-0.5); EOSINOPHILS % 1.6 % (0.0-7.0); HEMATOCRIT 38.5 % (42.0-52.0); HEMOGLOBIN 11.8 g/dl (14.0-18.0); LYMPHOCYTES # 2.7 10^3/ul (0.8-2.9); LYMPHOCYTES % 21.1 % (15.0-51.0); MEAN CORPUSCULAR HEMOGLOBIN 19.5 pg (29.0-33.0); MEAN CORPUSCULAR HGB CONC 30.6 g/dl (32.0-37.0); MEAN CORPUSCULAR VOLUME 63.6 fl (82.0-101.0); MEAN PLATELET VOLUME 9.7 fl (7.4-10.4); MONOCYTE # 0.7 10^3/ul (0.3-0.9); MONOCYTES % 5.5 % (0.0-11.0); NEUTROPHILS % 71.2 % (39.0-77.0); PLATELET COUNT 233 10^3/UL (140-415); RED BLOOD COUNT 6.05 10^6/ul (4.70-6.10); RED CELL DISTRIBUTION WIDTH 18.7 % (11.5-14.5); WHITE BLOOD COUNT 12.7 10^3/ul (4.8-10.8)
[2017-04-28 10:32] LABS: IRON 78 ug/dl (35-150)
[2017-04-28 10:33] LABS: CALCIUM 8.5 mg/dl (8.4-10.2); CREATININE 0.97 mg/dl (0.61-1.24); PHOSPHORUS 3.3 mg/dl (2.5-4.9); POTASSIUM 3.7 mmol/L (3.5-5.1)
[2017-04-28 10:35] LABS: CREATINE KINASE 49 IU/L (23-200)
[2017-04-28 10:41] LABS: TOTAL IRON BINDING CAPACITY 323 ug/dl (241-421)
[2017-04-28 10:56] LABS: CK-MB < 0.22 ng/ml (0.0-2.4); TROPONIN-I < 0.012 ng/ml (0.00-0.12)
[2017-04-28] MEDS: NITROGLYCERIN (SL) 0.4 MG TAB SL PRN (11:25)
--- NOTE | 2017-04-28 12:43 | HP ---
DATE OF ADMISSION: 04/28/2017 CHIEF COMPLAINT: Midsternal chest pain. HISTORY OF PRESENT ILLNESS: Mr. 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 At that time, he had undergone angioplasty and thrombectomy and since he has been closely following up with his reactor technician, Dr. Cho. He presents today because he has a history of chest pain that did not seem to respond to nitroglycerin and aspirin at home, but eventually went away in the emergency room. At the time of my evaluation the patient is chest pain free. He said he had no shortness of breath or diaphoresis, but is was similar to the pain he had in the past so he came in to be assessed. PAST MEDICAL HISTORY: 1. Hypertension. 2. Coronary artery disease, status post STEMI. 3. Dyslipidemia. SURGICAL HISTORY: Coronary angioplasty. ALLERGIES: NO KNOWN DRUG ALLERGIES. SOCIAL HISTORY: The patient has a history of tobacco abuse and continues to smoke intermittently, and he is trying to quit. Denies substance abuse or heavy alcohol use. FAMILY HISTORY: Noncontributory. REVIEW OF SYSTEMS: Twelve point review of system was done pertinent findings as noted above. PHYSICAL EXAMINATION: VITAL SIGNS: Temperature 98.2, pulse 89, respirations 16, blood pressure 127/67, and saturation 99 percent on room air. GENERAL: Patient is alert and oriented, in no distress. HEENT: Head is normocephalic. Pupils are equal, round, reactive. Mucous membranes are moist. Oropharynx is clear without exudate. NECK: Supple without adenopathy. CHEST: Clear to auscultation. Good air entry on both sides. CARDIOVASCULAR: S1, S2. No murmurs. ABDOMEN: Soft, nontender, nondistended. Normoactive bowel sounds. The patient has no lower extremity edema. SKIN: Void of rash or jaundice. PSYCH: Cooperative, in exam. LAB VALUES: Lab values are not overtly impressive on his chemistry. His troponin is negative. His EKG did show evidence of old infarcts but nothing acute. He did have a leukocytosis of 12,000 with a microcytic hypochromic picture. A chest x-ray also was negative for any acute chest process. ASSESSMENT: A 57-year-old male with a history of coronary artery disease, ST elevation myocardial infarction (STEMI) in the past and admitted and managed for the followin. Chest pain rule out acute coronary syndrome. 2. History of coronary artery disease, status post ST elevation myocardial infarction (STEMI) in the past. 3. Dyslipidemia. 4. Tobacco abuse. 5. Hypertension with good control. PLAN: Admit patient to telemetry floor. Complete ACS rule out with 3 sets of cardiac enzymes. The patient has had extensive workup in December to include a normal TSH and cholesterol screening, I will not be repeating at this time. He also had echocardiogram done at that time, that showed ejection fraction of between 40 and 50 percent, however, he did just recover from a STEMI when that was done. I would defer the need for a repeat echo to the reactor technician, Dr. Cho. We will consult Dr Cho to see the patient in house and further interventions will depend on his recommendations. In the interim, we will provide supportive care with pain control, aspirin, oxygen therapy if needed and antiemetics if needed. Mild leukocytosis is likely reactive we will trend his levels and go from there. This plan of care has been discussed with him. Questions have been answered. For prophylaxis is SCD. Also given Pepcid to help with GI symptoms. Dictated By: Maricel Murrieta MD /marilynn/stacey /Document#: [id number]
[2017-04-28] MEDS: ATORVASTATIN 80 MG TAB PO SCH (21:07)
[2017-04-29] VITALS (11 sets, daily range): BP systolic 114–130; BP diastolic 73–91; PULSE 60–84; RESP 18–20
[2017-04-29 07:37] LABS: BASOPHIL # 0.1 10^3/ul (0.0-0.1); BASOPHILS % 0.4 % (0.0-2.0); EOSINOPHILS # 0.2 10^3/ul (0.0-0.5); EOSINOPHILS % 1.8 % (0.0-7.0); HEMATOCRIT 40.3 % (42.0-52.0); HEMOGLOBIN 12.7 g/dl (14.0-18.0); LYMPHOCYTES # 2.9 10^3/ul (0.8-2.9); LYMPHOCYTES % 25.5 % (15.0-51.0); MEAN CORPUSCULAR HEMOGLOBIN 19.9 pg (29.0-33.0); MEAN CORPUSCULAR HGB CONC 31.5 g/dl (32.0-37.0); MEAN CORPUSCULAR VOLUME 63.2 fl (82.0-101.0); MONOCYTE # 0.8 10^3/ul (0.3-0.9); MONOCYTES % 7.4 % (0.0-11.0); NEUTROPHILS % 64.5 % (39.0-77.0); PLATELET COUNT 257 10^3/UL (140-415); RED BLOOD COUNT 6.38 10^6/ul (4.70-6.10); RED CELL DISTRIBUTION WIDTH 18.1 % (11.5-14.5); WHITE BLOOD COUNT 11.3 10^3/ul (4.8-10.8)
--- NOTE | 2017-04-29 08:17 | CONS ---
DATE OF ADMISSION: 04/28/2017 DATE OF CONSULTATION: 04/28/2017 REASON FOR CONSULTATION: Chest pain, history of coronary artery disease. CHIEF COMPLAINT: Chest pain. HISTORY OF PRESENT ILLNESS: from the patient, review of the old chart, discussion with the physicians and the staff. This is a pleasant 57-year-old gentleman with history of coronary artery disease, status post ST-elevation myocardial infarction on January 08, 2017, with PTCA and thrombectomy of his distal LAD, hypertension, dyslipidemia, who presented to the emergency room complaining. Patient said yesterday he was in congregational, and he started suddenly having epigastric/sternal chest pain. It was severe, lasted about an hour and resolved. Patient has been ruled out for myocardial infarction so far. Patient has remained chest pain free. PAST MEDICAL HISTORY: History of coronary artery disease; status post ST-elevation myocardial infarction on January 08, 2017; history of PTCA and thrombectomy after distal LAD at that time; history of hypertension; dyslipidemia. MEDICATION AT HOME: He is on: 1. Aspirin. 2. Lipitor. 3. Carvedilol. 4. Supposed to be also on Brilinta, amlodipine. He is not sure what he takes, but he said he takes 4 medications out of the five. FAMILY HISTORY: Father with PA. SOCIAL HISTORY: Does not smoke or drink. Patient is a box loader. ALLERGIES: NO KNOWN DRUG ALLERGIES. REVIEW OF SYSTEMS: He denied all, except for above-mentioned. PHYSICAL EXAMINATION: VITAL SIGNS: Temperature 98, heart rate 68, blood pressure 111/68, respiratory rate 16, saturating 93 percent. HEENT: Normocephalic, atraumatic. Pupils are equal. CARDIOVASCULAR: Regular rate and rhythm. Systolic murmur. PULMONARY: No wheezes or rhonchi. GASTROINTESTINAL: Soft, nontender. EXTREMITIES: No . NEUROLOGIC: Awake and alert, calm, pleasant. DERMATOLOGIC: . LABORATORY: Review shows 12.7, hemoglobin 11.8, platelets of 233,000. Sodium 142, potassium 3.8, BUN of 14, creatinine 0.98, glucose of 118. Troponin has been negative x3. EKG shows normal sinus rhythm, no evidence of ischemia. Chest x-ray shows negative for any acute chest process. ASSESSMENT: 1. Chest pain syndrome, rule out acute coronary syndrome. 2. History of coronary artery disease. 3. History of ST-elevation myocardial infarction in December of this year. 4. History of hypertension. 5. Dyslipidemia. RECOMMENDATIONS: Will continue with the current cardiac care, including aspirin, Brilinta, Coreg and amlodipine. Statin will be continued. Lipid panel will be checked. I will order echocardiogram as well as a Lexiscan obstructive coronary artery disease. Dictated By: Facundo Cho MD /marilynn/silverio /Document#: [id number] CC: Maricel Murrieta MD;*[facility]*
[2017-04-29] MEDS: AMLODIPINE 5 MG TAB PO SCH (09:00)
[2017-04-29] MEDS: FAMOTIDINE 20 MG TAB PO SCH ×2 (09:21→20:37)
[2017-04-29] MEDS: DOCUSATE SODIUM 100 MG CAP PO SCH ×2 (09:21→20:37)
[2017-04-29] MEDS: ASPIRIN (EC) 81 MG TAB PO SCH (09:21)
[2017-04-29 09:27] LABS: CREATINE KINASE 51 IU/L (23-200)
[2017-04-29 09:28] LABS: CHOL/HDL RATIO 3.5 RATIO; MAGNESIUM 2.1 mg/dl (1.7-2.5)
[2017-04-29] MEDS: TICAGRELOR 90 MG TABLET PO SCH ×2 (09:29→20:39)
[2017-04-29 09:30] LABS: ALBUMIN 3.9 g/dl (3.3-4.9); ALBUMIN/GLOBULIN RATIO 1.18; CREATININE 1.15 mg/dl (0.61-1.24); POTASSIUM 3.8 mmol/L (3.5-5.1); TOTAL PROTEIN 7.2 g/dl (6.1-8.1)
[2017-04-29 09:59] LABS: CK-MB 0.22 ng/ml (0.0-2.4); TROPONIN-I < 0.012 ng/ml (0.00-0.12)
--- NOTE | 2017-04-29 10:27 | PN ---
Date/Time of Note Date/Time of Note DATE: 04/29/17 TIME: 10:24 Assessment/Plan VTE Prophylaxis VTE Prophylaxis Intervention: SCD's Lines/Catheters IV [facility]from [facility] Saline [facility] Assessment/Plan Chief Complaint/Hosp Course Assessment and plan 1. Chest pain. troponins negative. Tentative plan for Lexiscan stress test. We will follow-up with result. 2. History of CAD status post ST elevation myocardial infarction in the past. Continue on statin as well as antiplatelet therapy. Continue beta-melissa as well 3. Dyslipidemia. Continue on statin medication 4. History of essential hypertension. Continue antihypertensives and adjust as needed. Stable at present. Disposition and plan: Tentative plan for stress test. We will follow-up with result. Anticipate discharge within the next 24 hours if medically stable and cleared by consultants Discussed plan of care with Dr. Lopes Problems: Subjective 24 Hr Interval Summary Free Text/Dictation Denies any chest pain at this time. Appears comfortable at present. Exam/Review of Systems Vital Signs Vitals Vital Signs Date Time Temp Pulse Resp B/P Pulse Ox O2 Delivery O2 Flow Rate FiO2 04/29/17 08:40 68 04/29/17 08:05 98.2 18 114/83 95 04/28/17 01:00 Room Air Intake and Output 04/28/17 04/28/17 04/29/17 15:00 23:00 07:00 Intake Total 525 ml 900 ml 300 ml Balance 525 ml 900 ml 300 ml Exam Constitutional: alert, oriented Psych: nl mood/affect Head: normocephalic Eyes: nl conjunctiva Neck: supple, No jvd Respiratory: clear to auscultation, normal air movement Cardiovascular: nl pulses, regular rate and rhythm Gastrointestinal: non-tender, soft Musculoskeletal: nl extremities to inspection Extremities: normal pulses Neurological: [employer] II-XII intact, nl mental status, nl speech Skin: nl turgor Results Result Diagram: 04/29/17 0645 04/29/17 0645 Results 24 hrs Laboratory Tests Test 04/29/17 06:45 White Blood Count 11.3 H Red Blood Count 6.38 H Hemoglobin 12.7 L Hematocrit 40.3 L Mean Corpuscular Volume 63.2 L Mean Corpuscular Hemoglobin 19.9 L Mean Corpuscular Hemoglobin Concent 31.5 L Red Cell Distribution Width 18.1 H Platelet Count 257 Mean Platelet Volume 10.0 Neutrophils % 64.5 Lymphocytes % 25.5 Monocytes % 7.4 Eosinophils % 1.8 Basophils % 0.4 Nucleated Red Blood Cells % 0.0 Neutrophils # (Manual) 7.3 Lymphocytes # 2.9 Monocytes # 0.8 Eosinophils # 0.2 Basophils # 0.1 Nucleated Red Blood Cells # 0.0 Sodium Level 144 Potassium Level 3.8 Chloride Level 102 Carbon Dioxide Level 27 Anion Gap 19 H Blood Urea Nitrogen 13 Creatinine 1.15 Glucose Level 80 Hemoglobin A1c 5.6 Calcium Level 9.0 Phosphorus Level 4.0 Magnesium Level 2.1 Total Bilirubin 1.0 Direct Bilirubin 0.00 Indirect Bilirubin 1.0 Aspartate Amino Transf (AST/SGOT) 16 Alanine Aminotransferase (ALT/SGPT) 33 Alkaline Phosphatase 54 Creatine Kinase 51 Creatine Kinase Index 0.4 Creatinine Kinase MB (Mass) 0.22 Troponin I < 0.012 Total Protein 7.2 Albumin 3.9 Globulin 3.30 H Albumin/Globulin Ratio 1.18 Triglycerides Level 159 H Cholesterol Level 91 L LDL Cholesterol, Calculated 33 HDL Cholesterol 26 L Cholesterol/HDL Ratio 3.5 Medications Medications Current Medications Amlodipine Besylate (Norvasc) 5 mg DAILY PO Last administered on 04/28/17 09: 25; Admin Dose 5 MG; Start 04/28/17 at 09:00 Aspirin (Halfprin) 81 mg DAILY PO Last administered on 04/29/17 09:21; Admin Dose 81 MG; Start 04/28/17 at 09:00 Atorvastatin Calcium (Lipitor) 80 mg DAILY@21 PO Last administered on 21:07; Admin Dose 80 MG; Start 04/28/17 at 21:00 Carvedilol (Coreg) 12.5 mg BID PO Last administered on 04/28/17 21:08; Admin Dose 12.5 MG; Start 04/28/17 at 09:00 Nitroglycerin (Nitroglycerin (Sl Tab) 0.4 Mg) 1 tab Q5M PRN SL CHEST PAIN; Start 04/28/17 at 01:30 Ticagrelor (Brilinta) 90 mg BID PO Last administered on 04/29/17 09:29; Admin Dose 90 MG; Start 04/28/17 at 09:00 Ondansetron HCl (Zofran Inj) 4 mg Q6H PRN IV NAUSEA AND/OR VOMITING; Start at 01:30 Morphine Sulfate (morphine) 2 mg Q4H PRN IV pain Last administered on 05:44; Admin Dose 2 MG; Start 04/28/17 at 01:30 Docusate Sodium (Colace) 100 mg BID PO Last administered on 04/29/17 09:21; Admin Dose 100 MG; Start 04/28/17 at 09:00 Famotidine (Pepcid) 20 mg BID PO Last administered on 04/29/17 09:21; Admin Dose 20 MG; Start 04/28/17 at 09:00 BRISSA LINN Apr 29, 2017 10:27
[2017-04-29] MEDS ORDERED: ASPI-664 PO (10:28)
[2017-04-29] MEDS ORDERED: TICA90TA PO (10:28)
[2017-04-29] MEDS ORDERED: AMLO-145 PO (10:28)
[2017-04-29] MEDS ORDERED: CARV12.579 PO (10:28)
[2017-04-29] MEDS ORDERED: ATOR80TA75 PO (10:28)
--- NOTE | 2017-04-29 15:04 | RADRPT ---
Echocardiogram Report Patient Name: VELIA BOATENG Gender: Male Date: 1960 Study Date: 29-Apr-2017 Plaster Helper: MUSA AGUIRRE Location: [id number] Ref. Physician: FARHAT CHO Quality: Good Procedures: Transthoracic echocardiogram with complete 2D, M-Mode, and doppler examination. Indications: Evaluate lv, CAD. 2D/M Mode Doppler Measurement Value Normal Ranges Measurement Value Normal Ranges LVIDd 2D 4.5 3.5 - 5.6 cm CANDY Vmax 2.6 cm2 LVIDs 2D 2.4 2.1 - 4.1 cm CANDY VTI 2.6 cm2 LVPWd 2D 1.4 0.6 - 1.1 cm AV Peak Camilo 1.2 m/sec IVSd 2D 1.4 0.6 - 1.1 cm AV Peak PG 6.2 mmHg AoR Diam 2D 4.2 2.0 - 3.7 cm AI Peak PG 31.0 mmHg EDV 2D 91.3 cm3 AI Peak Camilo 2.8 m/sec ESV 2D 13.1 cm3 AI PHT 319.7 msec LA Dimen 2D 3.5 2.3 - 4.0 cm LVOT Peak Camilo 0.9 m/sec LVOT Diam 2.1 cm LVOT Peak PG 3.4 mmHg MV E Peak Camilo 0.8 m/sec MV A Peak Camilo 0.9 m/sec MV E/A 0.8 MV Decel Time 177 msec MV Decel Barbour 4 MV E/A 0.8 TR Peak Camilo 2.7 m/sec TR Peak PG 39.6 mmHg RVSP 49.6 mmHg Findings Left Ventricle: Normal left ventricular cavity size. Moderate concentric left ventricular hypertrophy. Ejection fraction is visually estimated at 55 %. Abnormal Diastolic Function. These segments of the LV are hypokinetic apical anterior segment and apex. Right Ventricle: Normal right ventricular size. Normal right ventricular systolic function. Left Atrium: The left atrium is normal in size. Right Atrium: The right atrium is normal in size. RA Pressure=42. Mitral Valve: Mild mitral valve regurgitation. Aortic Valve: Normal appearance of the aortic valve. No significant aortic stenosis or insufficiency. Tricuspid Valve: Normal appearance and function of the tricuspid valve with trace physiologic regurgitation. Normal right ventricular systolic pressure. Estimated peak PA systolic pressure 49 mmHg. Pulmonic Valve: Normal pulmonic valve appearance. Pericardium: Normal pericardium with no significant pericardial effusion. Aorta: Normal aortic root. IVC: Normal size and normal respiratory collapse consistent with normal right atrial pressure. Pulmonary Artery: Not well visualized. Conclusions 1.Normal left ventricular cavity size. Moderate concentric left ventricular hypertrophy. Ejection fraction is visually estimated at 55 %. Abnormal Diastolic Function. These segments of the LV are hypokinetic apical anterior segment. and apex. 2.Mild mitral valve regurgitation. 3.Normal appearance of the aortic valve. No significant aortic stenosis or insufficiency. 4.Normal appearance and function of the tricuspid valve with trace physiologic regurgitation. Normal right ventricular systolic pressure. Estimated peak PA systolic pressure 49 mmHg. Electronically Signed By: Farhat Cho 29-Apr-2017 15:03:55 -0700 Patient Name: VELIA BOATENG Study Date: 29-Apr-2017 [id number]
[2017-04-29] MEDS ORDERED: REGADENOSON 0.4 MG/5 ML SYG ONE (15:26)
--- NOTE | 2017-04-29 17:20 | CONS ---
Date/Time of Note Date/Time of Note DATE: 04/29/17 TIME: 17:18 Consult Date/Type/Reason Admit Date/Time Apr 28, 2017 at 00:00 Initial Consult Date Type of Consultation: CARDIOLOGY Subjective The staff emergency was reviewed. Patient remained in sinus rhythm. Denies any chest pain or pressure to me anymore. Denies any palpitation or shortness of breath to me now. objective: General: no acute distress HEENT: NC/AT. pupils are equal. round. NECK: NO JVD. no stridor. CV: RRR. systolic murmur; no gallop or rubs. PULM: no wheezing or rhonchi. GI: OBESE SOFT, NT, ND, no rebound or guarding Extremity: trace B/L LE edema. no clubbing. neuro: awake and alert, OX3. Psych: calm and pleasant rectal: deferred : normal Objective Vital Signs Date Time Temp Pulse Resp B/P Pulse Ox O2 Delivery O2 Flow Rate FiO2 04/29/17 17:05 84 04/29/17 15:35 98.3 18 130/91 96 04/28/17 01:00 Room Air Intake and Output 04/28/17 04/28/17 04/29/17 15:00 23:00 07:00 Intake Total 525 ml 900 ml 300 ml Balance 525 ml 900 ml 300 ml Results/Medications Result Diagram: 04/29/17 0645 04/29/17 0645 Results 24 hrs Laboratory Tests Test 04/29/17 06:45 White Blood Count 11.3 H Red Blood Count 6.38 H Hemoglobin 12.7 L Hematocrit 40.3 L Mean Corpuscular Volume 63.2 L Mean Corpuscular Hemoglobin 19.9 L Mean Corpuscular Hemoglobin Concent 31.5 L Red Cell Distribution Width 18.1 H Platelet Count 257 Mean Platelet Volume 10.0 Neutrophils % 64.5 Lymphocytes % 25.5 Monocytes % 7.4 Eosinophils % 1.8 Basophils % 0.4 Nucleated Red Blood Cells % 0.0 Neutrophils # (Manual) 7.3 Lymphocytes # 2.9 Monocytes # 0.8 Eosinophils # 0.2 Basophils # 0.1 Nucleated Red Blood Cells # 0.0 Sodium Level 144 Potassium Level 3.8 Chloride Level 102 Carbon Dioxide Level 27 Anion Gap 19 H Blood Urea Nitrogen 13 Creatinine 1.15 Glucose Level 80 Hemoglobin A1c 5.6 Calcium Level 9.0 Phosphorus Level 4.0 Magnesium Level 2.1 Total Bilirubin 1.0 Direct Bilirubin 0.00 Indirect Bilirubin 1.0 Aspartate Amino Transf (AST/SGOT) 16 Alanine Aminotransferase (ALT/SGPT) 33 Alkaline Phosphatase 54 Creatine Kinase 51 Creatine Kinase Index 0.4 Creatinine Kinase MB (Mass) 0.22 Troponin I < 0.012 Total Protein 7.2 Albumin 3.9 Globulin 3.30 H Albumin/Globulin Ratio 1.18 Triglycerides Level 159 H Cholesterol Level 91 L LDL Cholesterol, Calculated 33 HDL Cholesterol 26 L Cholesterol/HDL Ratio 3.5 Medications Current Medications Amlodipine Besylate (Norvasc) 5 mg DAILY PO Last administered on 04/28/17 09: 25; Admin Dose 5 MG; Start 04/28/17 at 09:00 Aspirin (Halfprin) 81 mg DAILY PO Last administered on 04/29/17 09:21; Admin Dose 81 MG; Start 04/28/17 at 09:00 Atorvastatin Calcium (Lipitor) 80 mg DAILY@21 PO Last administered on 21:07; Admin Dose 80 MG; Start 04/28/17 at 21:00 Carvedilol (Coreg) 12.5 mg BID PO Last administered on 04/28/17 21:08; Admin Dose 12.5 MG; Start 04/28/17 at 09:00 Nitroglycerin (Nitroglycerin (Sl Tab) 0.4 Mg) 1 tab Q5M PRN SL CHEST PAIN; Start 04/28/17 at 01:30 Ticagrelor (Brilinta) 90 mg BID PO Last administered on 04/29/17 09:29; Admin Dose 90 MG; Start 04/28/17 at 09:00 Ondansetron HCl (Zofran Inj) 4 mg Q6H PRN IV NAUSEA AND/OR VOMITING; Start at 01:30 Morphine Sulfate (morphine) 2 mg Q4H PRN IV pain Last administered on 05:44; Admin Dose 2 MG; Start 04/28/17 at 01:30 Docusate Sodium (Colace) 100 mg BID PO Last administered on 04/29/17 09:21; Admin Dose 100 MG; Start 04/28/17 at 09:00 Famotidine (Pepcid) 20 mg BID PO Last administered on 04/29/17 09:21; Admin Dose 20 MG; Start 04/28/17 at 09:00 Assessment/Plan Chief Complaint/Hosp Course 1. Chest pain syndrome, rule out acute coronary syndrome. 2. History of coronary artery disease. 3. History of ST-elevation myocardial infarction in December of this year. 4. History of hypertension. 5. Dyslipidemia. 6. OBESITY RECOMMENDATIONS: Will continue with the current cardiac care, including aspirin , Brilinta, Coreg and amlodipine. Statin will be continued. LEXISCAN STRESS TEST TODAY. if + ---> [facility] jonel PCI, otherwise dc planning on medical therapy FARHAT CALHOUN MD [facility] Problems: FARHAT TITUS MD Apr 29, 2017 17:20
--- NOTE | 2017-04-29 17:26 | RADRPT ---
PROCEDURE: Lexiscan myocardial perfusion study CLINICAL INDICATION: 57 -year-old patient complaining of chest pain. TECHNIQUE: Lexiscan 0.4 mg intravenously separate acquisition gated myocardial perfusion SPECT usi ng Tc 99m Myoview 30.0 mCi intravenously at stress and Tc-99m Myoview 10.0 mCi intravenously at rest was performed using the rest/stress sequence. Poststress Sestamibi SPECT images were obtained in t he supine position. COMPARISON: No prior studies. FINDINGS: Perfusion images reveal mild nonreversible perfusion abnormality in the inferoapical and inferior wa ll. Lexiscan post stress gated SPECT images demonstrate no wall motion abnormalities. IMPRESSION: 1. No evidence of stress-induced ischemia. 2. No wall motion abnormalities. 3. The left ventricle ejection fraction at stress is 55%. RPTAT: HH .Olga Cross MD, MD Date Time Electronically viewed and signed by .Olga Cross MD, on 04/30/2017 10:03 .L/
[2017-04-29] MEDS: ATORVASTATIN 80 MG TAB PO SCH (20:37)
[2017-04-30] VITALS (9 sets, daily range): BP systolic 111–138; BP diastolic 61–88; PULSE 55–67; RESP 16–20
[2017-04-30] MEDS: FAMOTIDINE 20 MG TAB PO SCH (08:47)
[2017-04-30] MEDS: ASPIRIN (EC) 81 MG TAB PO SCH (08:47)
[2017-04-30] MEDS: DOCUSATE SODIUM 100 MG CAP PO SCH (08:47)
[2017-04-30] MEDS: AMLODIPINE 5 MG TAB PO SCH (08:48)
[2017-04-30] MEDS: TICAGRELOR 90 MG TABLET PO SCH (08:51)
--- NOTE | 2017-04-30 09:25 | PDOCDIS ---
Discharge Instructions DIAGNOSIS Discharge Diagnosis 1. Chest pain. 2. History of CAD status post ST elevation myocardial infarction in the past. 3. Dyslipidemia. Continue on statin medication 4. History of essential hypertension. CONDITION Patient Condition: Stable HOME CARE INSTRUCTIONS: Special Diet: Low Chol/Low Fat Diet FOLLOW UP/APPOINTMENTS Follow-up Plan 1. Follow up with Dr. Facundo Cho in 1-2 weeks 2. Follow up with your primary care provider in 1-2 weeks BRISSA LINN Apr 30, 2017 09:25
--- NOTE | 2017-04-30 10:03 | DS ---
Date/Time of Note Date/Time of Note DATE: 04/30/17 TIME: 09:58 Discharge Summary Admission/Discharge Info Admit Date/Time Apr 28, 2017 at 00:00 Discharge Date/Time Patient Condition: Stable Consults 1. Dr. Loredo [facility] Course This is a 57-year-old male with history of ST elevated myocardial infarction who also has a history of angioplasty and thrombectomy, hypertension, dyslipidemia, who came to [facility] due to reports of chest pain. Patient did have serial troponins drawn which were all essentially negative and he also had another echocardiogram done that did show him to have an ejection fraction of 55% with abnormal diastolic dysfunction. After review patient also did undergo Lexiscan stress test which per result showed no evidence of stress-induced ischemia and no wall motion abnormalities and ejection fraction at stress of 55%. During his course of stay he did improve. His chest pain did resolve. He was otherwise optimized medically. He was provided with antihypertensives for his hypertension and statin medication for his dyslipidemia. He was instructed to follow-up with his fish smoker within a week upon discharge. The plan of care was discussed with the patient and patient did verbalizes understanding. On the day of discharge patient was in stable condition Discussed plan of care with Dr. Lopes [facility] Active Scripts Aspirin* (Aspirin* EC) 81 Mg Tablet., 81 MG PO DAILY, #90 3 Refills Prov:BRISSA LINN 04/29/17 Carvedilol* (Carvedilol*) 12.5 Mg Tablet, 12.5 MG PO BID, #60 TAB 1 Refill Prov:BRISSA LINN 04/29/17 Atorvastatin* (Atorvastatin*) 80 Mg Tablet, 80 MG PO DAILY@21, #60 TAB 1 Refill Prov:BRISSA LINN 04/29/17 Amlodipine Besylate* (Amlodipine Besylate*) 5 Mg Tablet, 5 MG PO DAILY, #60 TAB 1 Refill Prov:BRISSA LINN 04/29/17 Ticagrelor* (Brilinta*) 90 Mg Tablet, 90 MG PO BID, #60 TAB 3 Refills Prov:BRISSA LINN 04/29/17 Nitroglycerin* (Nitrostat*) 0.4 Mg Tab.subl, 1 TAB SL Q5M Y for CHEST PAIN, #90 Prov:CHRISTINE SAEED 01/10/17 Follow-up Plan CONDITION Patient Condition: Stable HOME CARE INSTRUCTIONS: Special Diet: Low Chol/Low Fat Diet FOLLOW UP/APPOINTMENTS Follow-up Plan 1. Follow up with Dr. Facundo Cho in 1-2 weeks 2. Follow up with your primary care provider in 1-2 weeks Primary Care Provider Care Physician No Primary Time spent on discharge: > 30 minutes BRISSA LINN Apr 30, 2017 10:03
[2017-04-30 10:15] LABS: BASOPHILS % 0.3 % (0.0-2.0); EOSINOPHILS # 0.3 10^3/ul (0.0-0.5); EOSINOPHILS % 2.5 % (0.0-7.0); HEMATOCRIT 42.4 % (42.0-52.0); HEMOGLOBIN 13.1 g/dl (14.0-18.0); LYMPHOCYTES # 2.7 10^3/ul (0.8-2.9); LYMPHOCYTES % 25.9 % (15.0-51.0); MEAN CORPUSCULAR HEMOGLOBIN 19.5 pg (29.0-33.0); MEAN CORPUSCULAR HGB CONC 30.9 g/dl (32.0-37.0); MEAN CORPUSCULAR VOLUME 63.2 fl (82.0-101.0); MEAN PLATELET VOLUME 9.9 fl (7.4-10.4); MONOCYTE # 0.7 10^3/ul (0.3-0.9); MONOCYTES % 6.3 % (0.0-11.0); NEUTROPHILS % 64.5 % (39.0-77.0); PLATELET COUNT 258 10^3/UL (140-415); RED BLOOD COUNT 6.71 10^6/ul (4.70-6.10); RED CELL DISTRIBUTION WIDTH 18.9 % (11.5-14.5); WHITE BLOOD COUNT 10.6 10^3/ul (4.8-10.8)
[2017-04-30 10:40] LABS: CALCIUM 9.2 mg/dl (8.4-10.2); CREATININE 1.11 mg/dl (0.61-1.24); POTASSIUM 3.9 mmol/L (3.5-5.1)
--- NOTE | 2017-04-30 16:29 | CONS ---
Date/Time of Note Date/Time of Note DATE: 04/30/17 TIME: 16:28 Consult Date/Type/Reason Admit Date/Time Apr 28, 2017 at 00:00 Type of Consultation: CARDIOLOGY Subjective The staff emergency was reviewed. Patient remained in sinus rhythm. Denies any chest pain or pressure to me anymore. Denies any palpitation or shortness of breath to me now. objective: General: no acute distress HEENT: NC/AT. pupils are equal. round. NECK: NO JVD. no stridor. CV: RRR. systolic murmur; no gallop or rubs. PULM: no wheezing or rhonchi. GI: OBESE SOFT, NT, ND, no rebound or guarding Extremity: trace B/L LE edema. no clubbing. neuro: awake and alert, OX3. Psych: calm and pleasant rectal: deferred : normal Objective Vital Signs Date Time Temp Pulse Resp B/P Pulse Ox O2 Delivery O2 Flow Rate FiO2 04/30/17 16:13 67 04/30/17 15:44 98.7 18 138/88 96 04/28/17 01:00 Room Air Intake and Output 04/29/17 04/29/17 04/30/17 15:00 23:00 07:00 Intake Total 500 ml 450 ml Balance 500 ml 450 ml Results/Medications Result Diagram: 04/30/17 0954 04/30/17 0954 Results 24 hrs Laboratory Tests Test 04/30/17 09:54 White Blood Count 10.6 Red Blood Count 6.71 H Hemoglobin 13.1 L Hematocrit 42.4 Mean Corpuscular Volume 63.2 L Mean Corpuscular Hemoglobin 19.5 L Mean Corpuscular Hemoglobin Concent 30.9 L Red Cell Distribution Width 18.9 H Platelet Count 258 Mean Platelet Volume 9.9 Neutrophils % 64.5 Lymphocytes % 25.9 Monocytes % 6.3 Eosinophils % 2.5 Basophils % 0.3 Nucleated Red Blood Cells % 0.0 Neutrophils # (Manual) 6.8 Lymphocytes # 2.7 Monocytes # 0.7 Eosinophils # 0.3 Basophils # 0.0 Nucleated Red Blood Cells # 0.0 Sodium Level 141 Potassium Level 3.9 Chloride Level 98 Carbon Dioxide Level 29 Anion Gap 18 H Blood Urea Nitrogen 17 Creatinine 1.11 Glucose Level 111 Calcium Level 9.2 Medications Current Medications Amlodipine Besylate (Norvasc) 5 mg DAILY PO Last administered on 04/30/17 08: 48; Admin Dose 5 MG; Start 04/28/17 at 09:00 Aspirin (Halfprin) 81 mg DAILY PO Last administered on 04/30/17 08:47; Admin Dose 81 MG; Start 04/28/17 at 09:00 Atorvastatin Calcium (Lipitor) 80 mg DAILY@21 PO Last administered on 20:37; Admin Dose 80 MG; Start 04/28/17 at 21:00 Carvedilol (Coreg) 12.5 mg BID PO Last administered on 04/30/17 08:47; Admin Dose 12.5 MG; Start 04/28/17 at 09:00 Nitroglycerin (Nitroglycerin (Sl Tab) 0.4 Mg) 1 tab Q5M PRN SL CHEST PAIN; Start 04/28/17 at 01:30 Ticagrelor (Brilinta) 90 mg BID PO Last administered on 04/30/17 08:51; Admin Dose 90 MG; Start 04/28/17 at 09:00 Ondansetron HCl (Zofran Inj) 4 mg Q6H PRN IV NAUSEA AND/OR VOMITING; Start at 01:30 Morphine Sulfate (morphine) 2 mg Q4H PRN IV pain Last administered on 05:44; Admin Dose 2 MG; Start 04/28/17 at 01:30 Docusate Sodium (Colace) 100 mg BID PO Last administered on 04/30/17 08:47; Admin Dose 100 MG; Start 04/28/17 at 09:00 Famotidine (Pepcid) 20 mg BID PO Last administered on 04/30/17 08:47; Admin Dose 20 MG; Start 04/28/17 at 09:00 Assessment/Plan Chief Complaint/Hosp Course 1. Chest pain syndrome, rule out acute coronary syndrome. 2. History of coronary artery disease. 3. History of ST-elevation myocardial infarction in December of this year. 4. History of hypertension. 5. Dyslipidemia. 6. OBESITY RECOMMENDATIONS: Will continue with the current cardiac care, including aspirin, Brilinta, Coreg and amlodipine. Statin will be continued. LEXISCAN STRESS TEST did not show any ischemia. cont medical therapy dc planning FARHAT CALHOUN MD [facility] Problems: FARHAT TITUS MD Apr 30, 2017 16:29
== END 2017-04-30 18:30 | disposition home or self-care (01) | DRG 313 ==
LOC: E/R 21:47 → MS4 04-28
PROVIDERS: ADMIT Family Medicine; ATTEND Family Medicine
DX: R07.9 Chest pain, unspecified (principal); I25.2 Old myocardial infarction; I10 Essential (primary) hypertension; I25.10 Atherosclerotic heart disease of native coronary artery without angina pectoris; E78.5 Hyperlipidemia, unspecified; F17.210 Nicotine dependence, cigarettes, uncomplicated; E66.9 Obesity, unspecified; Z68.30 Body mass index [BMI] 30.0-30.9, adult; Z79.82 Long term (current) use of aspirin; Z79.02 Long term (current) use of antithrombotics/antiplatelets; Z98.61 Coronary angioplasty status
CPT/HCPCS: 71010; 78452; 80048; 80053; 80061; 82550; 82553; 83036; 83540; 83735; 84100; 84484; 85025; 93005; 93017; 93306; A9500; A9505; J2270; J2785; J7030